=== PATIENT | female | born 1965 | race Caucasian/White ===

== ENCOUNTER 2020-09-02 18:35 | Emergency (ER) | payer OTHER ==
[~2020-09-02] VITALS: Ht 167.6 cm; Wt 105.0 kg
[2020-09-02 18:41] VITALS: BP 146/89
[2020-09-02 19:28] LABS: MICROSCOPIC INDICATED
--- NOTE | 2020-09-02 20:30 | NUR ---
pt called to room from lobby
--- NOTE | 2020-09-02 22:00 | NUR ---
PT GIVEN PRESCRIPTION MEDICATION AT DISCHARGE. FOLLOW UP WITH UROLOGY. PT VERBALIZED UNDERSTANDING. AMBULATORY AT DISCHARGE.
== END 2020-09-02 22:33 | disposition home or self-care (01) ==
LOC: ED 21:30
DX: N30.01 Acute cystitis with hematuria (principal)
CPT/HCPCS: 81001; 87077; 87086; 87186; 99283